=== PATIENT | female | born 1995 ===

== ENCOUNTER 2018-08-01 11:21 | Emergency (ER) | payer MEDICAID, OTHER ==
--- NOTE | 2018-08-01 11:37 | Emergency Department Report ---
Chief Complaint: Vaginal Bleeding Stated Complaint: /SPOTTING Time Seen by Provider: 08/01/18 11:36 - HPI History of Present Illness: 06/19 LMP G2 NO OB YET VAG BLEED POS PREG TEST NAD MSE screening note: Focused history and physical exam performed. Due to findings the following was ordered: ED Disposition for MSE Condition: Stable
[2018-08-01 11:38] VITALS: BP 113/64
[2018-08-01 12:26] LABS: Basophils % (Auto) 0.4 % (0.0-1.8); Eosinophils # (Auto) 0.2 K/mm3 (0.0-0.4); Eosinophils % (Auto) 2.2 % (0.0-4.3); Hematocrit 41.2 % (30.3-42.9); Hemoglobin 13.5 gm/dl (10.1-14.3); Lymphocytes # (Auto) 2.2 K/mm3 (1.2-5.4); Lymphocytes % (Auto) 24.8 % (13.4-35.0); Mean Corpuscular HGB Conc 33 % (30-34); Mean Corpuscular Volume 87 fl (79-97); Monocytes # (Auto) 0.7 K/mm3 (0.0-0.8); Monocytes % (Auto) 7.8 % (0.0-7.3); Platelet Count 318 K/mm3 (140-440); Red Blood Count 4.73 M/mm3 (3.65-5.03); Red Cell Distribution Width 13.3 % (13.2-15.2)
--- NOTE | 2018-08-01 14:14 | Ultrasound Report ---
Contrast no sonography: History: Vaginal bleeding. Findings: Uterus measures 10.4 x 4.8 x 5 cm. Endometrial thickness 17.9 mm. No intrauterine gestation. Right ovary 3.1 x 1.7 x 3.2 cm. No mass. Left ovary 4.4 x 2.1 x 2.5 cm. Cysts in the left ovary measures 2 cm. Impression: Thick endometrium. No intrauterine gestation. Left ovarian cyst.
[2018-08-01 14:59] LABS: Bilirubin,Urine NEG (Negative); Blood,Urine MOD (Negative); Color,Urine Straw (Yellow); Mucus,Urine FEW /HPF; Protein,Urine <15 mg/dL mg/dL (Negative); Urobilinogen,Urine < 2.0 mg/dL (<2.0)
--- NOTE | 2018-08-01 15:12 | Emergency Department Report ---
HPI - General Chief Complaint: Vaginal Bleeding Time Seen by Provider: 08/01/18 11:36 - HPI HPI: She is a 23-year-old who presents to ED complaining of vaginal spotting that began yesterday. Patient states that when she began spotting is stationed a test that was positive at home. Patient presents here today because she continue spotting started getting some mild low pelvic cramping. She denies nausea/vomiting/abdominal pain/fever/chest and shortness of breath. ED Past Medical Hx - Past Medical History Previous Medical History?: No - Surgical History Past Surgical History?: No - Social History Smoking Status: Never Smoker Substance Use Type: None ED Review of Systems ROS: Stated complaint: /SPOTTING Other details as noted in HPI Comment: All other systems reviewed and negative Constitutional: denies: chills, fever Eyes: denies: eye pain, eye discharge, vision change ENT: denies: ear pain, throat pain Respiratory: denies: cough, shortness of breath, wheezing Cardiovascular: denies: chest pain, palpitations Endocrine: no symptoms reported Gastrointestinal: denies: abdominal pain, nausea, diarrhea Genitourinary: denies: urgency, dysuria, discharge Musculoskeletal: denies: back pain, joint swelling, arthralgia Skin: denies: rash, lesions Neurological: denies: headache, weakness, paresthesias Psychiatric: denies: anxiety, depression Hematological/Lymphatic: denies: easy bleeding, easy bruising Physical Exam - Physical Exam Vital Signs: Vital Signs 08/01/18 11:35 Temperature 97.9 F Pulse Rate 73 Respiratory 16 Rate Blood Pressure 113/64 [Right] O2 Sat by Pulse 98 Oximetry Physical Exam: GENERAL: Alert and oriented x3, no apparent distress, Normal Gait, atraumatic. HEAD: Head is normocephalic and a-traumatic. LUNGS: Symetrical with respiration, No wheezing, no rales or crackles, CTAB. HEART: S1, S2 present, regular rate and rhythm without murmur, no rubs, no gallops. Non tender to palpation ABDOMEN: No organomegaly was noted,Positive bowel sounds, soft, and non- distended. . Nontender to palpation on all Quadrants, NO CVA tenderness. BACK: Full range of motion, no spinal tenderness, nontender to palpation. . SKIN: Warm and dry, No lesions, No ulceration or induration present. ED Course Vital Signs 08/01/18 11:35 Temperature 97.9 F Pulse Rate 73 Respiratory 16 Rate Blood Pressure 113/64 [Right] O2 Sat by Pulse 98 Oximetry ED Medical Decision Making - Lab Data Result diagrams: 08/01/18 12:03 - Radiology Data Radiology results: report reviewed, image reviewed Findings: Uterus measures 10.4 x 4.8 x 5 cm. Endometrial thickness 17.9 mm. No intrauterine gestation. Right ovary 3.1 x 1.7 x 3.2 cm. No mass. Left ovary 4.4 x 2.1 x 2.5 cm. Cysts in the left ovary measures 2 cm. Impression: Thick endometrium. No intrauterine gestation. Left ovarian cyst. Transcribed By: PTP Dictated By: ISAURO ZARAGOZA MD Electronically Authenticated By: ISAURO ZARAGOZA MD Signed Date/Time: 08/01/18 5479 - Medical Decision Making 23-year-old female presents with pelvic pain. Urinalysis negative Labs negative, quantitative 823. Pelvic ultrasound obtained. Ultrasound shows no intrauterine Discussed this findings with the patient. Discussed the patient will need close follow-up to return to follow up with [facility] in 2 days for repeat quantitative. Ectopic precautions given to patient. Discussed the patient exercised when seen any worsening pain left-sided in general to return to ED immediately. Medicines are normal and she is in no acute distress. Critical care attestation.: If time is entered above; I have spent that time in minutes in the direct care of this critically ill patient, excluding procedure time. ED Disposition Clinical Impression: test positive, Ovarian cyst Disposition: TO HOME OR SELFCARE Is pt being admited?: No Does the pt Need Aspirin: No Condition: Stable Instructions: Ectopic (ED), Ovarian Cyst (ED) Additional Instructions: Make sure to follow up with the primary care physician as discussed. Take all your medications as you've been prescribed. If you have any worsening symptoms or develop new symptoms please return to ED immediately. Referrals: TIMOTEO FLORENCE MD [Primary Care Provider] - 3-5 Days [facility] [Provider Group] - 3-5 Days [facility] [Provider Group] - 3-5 Days [facility] [Provider Group] - 3-5 Days Forms: Accompanied Note, Work/School Release Form(ED) Time of Disposition: 15:20
== END 2018-08-01 15:51 | disposition home or self-care (01) ==
LOC: ED 11:21
DX: O34.81 Maternal care for other abnormalities of pelvic organs, first trimester (principal); N83.202 Unspecified ovarian cyst, left side; Z3A.01 Less than 8 weeks gestation of pregnancy
CPT/HCPCS: 36415; 76801; 76817; 81001; 84702; 85025; 86900; 86901

== ENCOUNTER 2019-01-17 10:28 | Outpatient (CLI) | payer MEDICAID ==
[2019-01-17] MEDS ORDERED: oxyCODONE /ACETAMINOPHEN 5-325MG TAB PO PRN (13:26)
[2019-01-17 15:39] VITALS: BP 98/57
== END 2019-01-17 15:46 | disposition home or self-care (01) ==
LOC: TRG 10:28
PROVIDERS: ATTEND Obstetrics & Gynecology
DX: O47.03 False labor before 37 completed weeks of gestation, third trimester (principal); Z3A.29 29 weeks gestation of pregnancy
CPT/HCPCS: 59025

== ENCOUNTER 2019-03-10 15:08 | Outpatient (CLI) | payer MEDICAID ==
[2019-03-10 17:31] LABS: Bilirubin,Urine NEG (Negative); Blood,Urine NEG (Negative); Color,Urine Yellow (Yellow); Mucus,Urine FEW /HPF; Protein,Urine <15 mg/dL mg/dL (Negative); Urobilinogen,Urine < 2.0 mg/dL (<2.0)
--- NOTE | 2019-03-10 20:17 | Ultrasound Report ---
ULTRASOUND OBSTETRIC LIMITED ULTRASOUND BIOPHYSICAL PROFILE INDICATION / CLINICAL INFORMATION: BPP. Abdominal pain Clinical Gestational Age (GA): 36 weeks.days COMPARISON: None available. FINDINGS: BREATHING MOVEMENT = 2 GROSS BODY MOVEMENT = 2 TONE = 2 QUALITATIVE AMNIOTIC FLUID VOLUME = 2 TOTAL BIOPHYSICAL SCORE = 8/8 HEART RATE (beats per minute): 151 bpm AMNIOTIC FLUID INDEX (cm) = 8.9 (normal = 7-24 cm) PRESENTATION: Cephalic. ADDITIONAL FINDINGS: Placenta is located posteriorly with grade 2. No evidence of abruption. IMPRESSION: 1. Biophysical Score = 8/8 2. Single viable IUP in a cephalic presentation. Signer Name: Zoraida Dockery MD Signed: 03/10/2019 8:12 PM Workstation Name: [id number]
[2019-03-10 21:18] VITALS: BP 117/63
--- NOTE | 2019-03-12 06:58 | Progress Note ---
Assessment and Plan A: at 36 3/7 weeks gestation. Probable round ligament pain. Not in active labor. Category 1 heart rate tracing, BPP 8/8. P: Discussed US results and urine results with patient. Discussed possible etiologies for her symptoms, comfort measures for round ligament pain and aches and pains of late . Advised patient re: signs and symptoms of labor and warning signs of late . Advised patient to perform daily movement counting and technique discussed with pt. Follow up at [facility] this week. Subjective - Subjective Date of service: 03/10/19 Principal diagnosis: at 36 3/7 weeks; abd. pain and lower back pain Interval history: Triage note for 03/10/19 (late entry): 24 year old presented to L&D triage with complaint of lower back pain and intermittent abdominal pain for the past week. [place] patient; no records available. EDC 04/04/19 per patient self report. Patient states she gets regular care and has not had complications during this . Patient denies vaginal bleeding or leaking of fluid. Patient denies regular contractions. Patient reports active movement. Patient denies falls or abdominal trauma. Patient denies urinary or bowel symptoms; she denies vaginal discharge. She denies N/V, F/C, or malaise. She denies flank pain. Normal appetite. Patient reports: movement normal, no loss of fluid, no vaginal bleeding, no contractions Objective - Exam Narrative Exam: US: BPP 8/8; SHIRA 8.9 cm. Grade 2 placenta; no evidence of abruption. UA negative. Abdomen: Present: normal appearance, soft. Absent: distention, tenderness, guarding, rigidity Uterus: Present: normal, fundal height above umbilicus. Absent: tenderness FHR: category 1 Uterine Contraction Monitor Mode: External Uterine Contraction Pattern: Absent Extremities: normal
== END 2019-03-10 21:30 | disposition home or self-care (01) ==
LOC: TRG 15:08
PROVIDERS: ATTEND Obstetrics & Gynecology
DX: O47.03 False labor before 37 completed weeks of gestation, third trimester (principal); Z3A.36 36 weeks gestation of pregnancy
CPT/HCPCS: 76815; 76819; 81001

== ENCOUNTER 2019-03-22 04:33 | Inpatient (IN) | payer MEDICAID ==
[2019-03-22 06:05] LABS: Hemoglobin 11.3 gm/dl (10.1-14.3); Mean Corpuscular HGB Conc 33 % (30-34); Mean Corpuscular Volume 77 fl (79-97); Platelet Count 312 K/mm3 (140-440); Red Cell Distribution Width 13.8 % (13.2-15.2)
[2019-03-22] MEDS ORDERED: LACTATED RINGERS 2,000 ML ONE (06:05)
[2019-03-22 06:17] LABS: Bacteria,Urine 2+ /HPF (Negative); Bilirubin,Urine NEG (Negative); Blood,Urine MOD (Negative); Color,Urine Yellow (Yellow); Mucus,Urine 2+ /HPF; Urobilinogen,Urine < 2.0 mg/dL (<2.0)
[2019-03-22] MEDS ORDERED: LACTATED RINGERS 1,000 ML ONE (08:54)
--- NOTE | 2019-03-22 10:50 | History and Physical Report ---
History of Present Illness Date of examination: 03/22/19 Date of admission: 03/22/19 04:34 Chief complaint: SROM clear fluid @ 0252 History of present illness: Pt is a 24yo HF EDC 04/04/18; EGA 38 04/03 weeks presents to L&D complaining of SROM clear fluid @ 0252 followed by irregular contractions. She received care at [facility] since 7 weeks and course has been unremarkable. records are available but GBS is unknown. Past History Past Medical History: no pertinent history Past Surgical History: no surgical history Family/Genetic History: heart disease Social history: no significant social history, single - Obstetrical History Expected Date of Delivery: 04/04/19 Actual Gestation: 38 Week(s) 1 Day(s) : 2 Medications and Allergies Allergies Allergy/AdvReac Type Severity Reaction Status Date / Time No Known Allergies Allergy Verified 03/22/19 04:55 Home Medications Medication Instructions Recorded Confirmed Last Taken Type 21/Iron Fu/Folic Acid 1 each PO DAILY #30 tablet 08/03/18 Unknown Rx [ Complete Caplet] Review of Systems All systems: negative - Vital Signs Vital signs: Vital Signs Temp Pulse Resp BP Pulse Ox 98.7 F 85 16 129/79 97 03/22/19 04:53 03/22/19 04:53 03/22/19 04:53 03/22/19 04:53 03/22/19 04:53 Temp Pulse Resp BP Pulse Ox 98.3 F 85 16 129/79 97 03/22/19 05:59 03/22/19 04:53 03/22/19 05:59 03/22/19 04:53 03/22/19 04:53 - Physical Exam Abdomen: Positive: normal appearance, soft Genitourinary (Female): Positive: normal external genitalia Uterus: Positive: enlarged Extremities: Positive: normal - Obstetrical FHR: category 1 Uterine Contraction Monitor Mode: External Cervical Dilatation: 0.5 (per nurse) Cervical Effacement Percentage: 0 (per nurse) station: -4 Uterine Contraction Pattern: Irregular Uterine Tone Measurement Phase: Contraction Uterine Contraction Intensity: Mild Results Result Diagrams: 03/22/19 05:20 Abnormal lab results 03/22/19 03/22/19 Range/Units 04:30 05:20 MCV 77 L (79-97) fl MCH 26 L (28-32) pg U Epithel Cells (Auto) 51.0 H (0-13.0) /HPF All other labs normal. Assessment and Plan - Patient Problems (1) 38 weeks gestation of Onset Date: 03/22/19 Current Visit: Yes Status: Acute Plan to address problem: A: IUP @ 38 1/7 weeks in labor Unknown GBS P: Admit to L&D for expectant vaginal delivery IV Ampicillin Begin IV pitocin
[2019-03-22] MEDS ORDERED: ePHEDrine SULFATE 50 MG/1 ML INJ IV PRN (11:30)
[2019-03-22] MEDS ORDERED: ONDANSETRON 4 MG/2 ML INJ IV PRN (11:30)
[2019-03-22] MEDS ORDERED: BUTORPHANOL 2 MG/1 ML INJ IV PRN (11:30)
[2019-03-22] MEDS ORDERED: fentaNYL 100 MCG/2 ML INJ IV PRN (11:30)
[2019-03-22] MEDS ORDERED: TERBUTALINE 1 MG/1 ML INJ SUB-Q PRN (12:00)
[2019-03-22] MEDS ORDERED: LIDOCAINE (2%) 20 MG/1 ML VIAL 20 ML MDV INFILTRATI NR (12:00)
[2019-03-22] MEDS ORDERED: TERBUTALINE 1 MG/1 ML INJ IVP PRN (12:00)
[2019-03-22] MEDS ORDERED: OXYTOCIN 20 UNIT/1000ML DRIP 20 UNITS/1,000 ML BAG IV SCH (12:00)
[2019-03-22] MEDS ORDERED: OXYTOCIN DRIP 30 UNITS/500 ML BAG IV SCH (12:00)
[2019-03-22] MEDS ORDERED: AMPICILLIN/NS 2 GM/100 ML 2 GM/100 ML BAG IV ONE (12:00)
[2019-03-22] MEDS: OXYTOCIN DRIP 30 UNITS/500 ML BAG IV SCH ×2 (14:36→15:04)
[2019-03-22] MEDS: AMPICILLIN/NS 1 GM/50 ML 1 GM/50 ML BAG IV SCH ×2 (16:51→21:05)
[2019-03-22] MEDS: LACTATED RINGERS 1,000 ML IV SCH (21:05)
[2019-03-22] MEDS ORDERED: DEXMEDETOMIDINE 200 MCG/2 ML VIAL IV ONE (23:54)
[2019-03-23] MEDS ORDERED: NALOXONE 2 MG/2 ML INJ IV PRN (00:16)
--- NOTE | 2019-03-23 00:16 | Anesthesia Consultation ---
Anesthesia Consult and Med Hx Date of service: 03/23/19 - Airway Anesthetic Teeth Evaluation: Good ROM Head & Neck: Adequate Mental/Hyoid Distance: Adequate Mallampati Class: Class II Intubation Access Assessment: Good - Pulmonary Exam CTA: Yes - Cardiac Exam Cardiac Exam: RRR - Pre-Operative Health Status ASA Pre-Surgery Classification: ASA2, Emergency Proposed Anesthetic Plan: Epidural, Spinal - Pulmonary Hx Asthma: No COPD: No Hx Pneumonia: No - Cardiovascular System Hx Hypertension: No - Central Nervous System Hx Seizures: No Hx Psychiatric Problems: No - Endocrine Hx Renal Disease: No Hx End Stage Renal Disease: No Hx Hypothyroidism: No Hx Hyperthyroidism: No - Hematic Hx Anemia: No Hx Sickle Cell Disease: No - Other Systems Hx Alcohol Use: No
[2019-03-23] MEDS: ePHEDrine SULFATE 50 MG/1 ML INJ IV PRN ×2 (00:27→00:34)
[2019-03-23] MEDS ORDERED: fentaNYL-BUPIV 2 MCG/ML-0.125% 200 MCG/100 ML BAG EPIDURAL SCH (01:00)
[2019-03-23] MEDS: AMPICILLIN/NS 1 GM/50 ML 1 GM/50 ML BAG IV SCH ×4 (01:05→12:00)
[2019-03-23] MEDS: LACTATED RINGERS 1,000 ML IV SCH (04:58)
[2019-03-23] MEDS: MINERAL OIL 30 ML ORAL LIQD PO PRN ×5 (09:53→11:29)
[2019-03-23] MEDS ORDERED: METHYLERGONOVINE MALEATE 0.2 MG/ML VIAL IM ONE ×2 (11:54→18:32)
--- NOTE | 2019-03-23 11:54 | Procedure Note ---
OB Delivery Note - Delivery Date of Delivery: 03/23/19 Surgeon: ROMEO LOREDO Estimated blood loss: 200cc - Vaginal Delivery presentation: vertex Delivery position: OA Intrapartum events: PROM->1hr before delivery, prolonged labor- > = 20hr Delivery induction: oxytocin Delivery augmentation: pitocin Delivery monitor: external FHT, external uterine Route of delivery: Delivery placenta: spontaneous Delivery cord: 3 umbilical vessels Episiotomy: none Delivery laceration: none Anesthesia: epidural Delivery comments: Infant delivered OA and placed on Mom's chest for [id number] bonding and delayed cord clamping, cut by Dad - A at 1 minute: 8 at 5 minutes: 9 Infant Gender: Female (2765gms)
[2019-03-23] MEDS ORDERED: PROMETHAZINE 25 MG RECT SUPP PR PRN (18:37)
[2019-03-23] MEDS ORDERED: ACETAMINOPHEN 325 MG TAB PO PRN (18:37)
[2019-03-23] MEDS ORDERED: PROMETHAZINE 25 MG TAB PO PRN (18:37)
[2019-03-23] MEDS ORDERED: MAGNESIUM HYDROXIDE (MOM) ORAL LIQD UDC PO PRN (18:37)
[2019-03-23] MEDS ORDERED: WITCH HAZEL/ GLYCERIN PAD TP PRN (18:37)
[2019-03-23] MEDS ORDERED: ONDANSETRON 4 MG/2 ML INJ IV PRN (18:37)
[2019-03-23] MEDS ORDERED: diphenhydrAMINE 25 MG CAP PO PRN (18:37)
[2019-03-23] MEDS ORDERED: HYDROcodone/ACETAMINOPHEN 5-325 MG TAB PO PRN (18:37)
[2019-03-23] MEDS ORDERED: BENZOCAINE/MENTHOL 20/0.5% TOP SPRAY 56 GM TP PRN (18:37)
[2019-03-23] MEDS ORDERED: LANOLIN/ZINC/DIMETHICONE (LANSINOH) 7 GM TP PRN (18:37)
[2019-03-23] MEDS ORDERED: OXYTOCIN 20 UNIT/1000ML DRIP 20 UNITS/1,000 ML BAG IV SCH (19:00)
[2019-03-23] MEDS: IBUPROFEN 600 MG TAB PO SCH (23:56)
[2019-03-23] MEDS: DOCUSATE SODIUM 100 MG CAP PO SCH (23:56)
[2019-03-23] MEDS: FERROUS SULFATE 325 MG TAB PO SCH (23:57)
[2019-03-24] MEDS: IBUPROFEN 600 MG TAB PO SCH ×3 (05:05→22:08)
[2019-03-24] MEDS ORDERED: TETANUS,DIPH,PERTUSS(ACELL) VACCINE 0.5 ML SYRINGE IM ONE (06:00)
[2019-03-24] MEDS ORDERED: MEASLES, MUMPS & RUBELLA 12,500 UNIT/0.5 ML VACCINE SUB-Q ONE (06:00)
[2019-03-24 08:18] LABS: Hematocrit 31.7 % (30.3-42.9); Hemoglobin 10.2 gm/dl (10.1-14.3)
[2019-03-24] MEDS: DOCUSATE SODIUM 100 MG CAP PO SCH ×2 (10:17→22:07)
[2019-03-24] MEDS: FERROUS SULFATE 325 MG TAB PO SCH ×2 (10:17→22:07)
[2019-03-24] MEDS: PRENATAL VIT27-FE FUMARATE-FOLIC ACID VIT TAB PO SCH (10:17)
--- NOTE | 2019-03-24 10:23 | Progress Note ---
Assessment and Plan - Patient Problems (1) 38 weeks gestation of Onset Date: 03/22/19 Current Visit: Yes Status: Resolved (2) (normal spontaneous vaginal delivery) Onset Date: 03/24/19 Current Visit: Yes Status: Resolved Plan to address problem: A: S/P - PPD #1 Doing well Asymptomatic anemia - stable P: May go home tomorrow. Subjective - Subjective Date of service: 03/24/19 Principal diagnosis: s/p - PPD #1 Interval history: Pt is feeling well without complaints. Bleeding improved. Patient reports: appetite normal, voiding normally, pain well controlled, flatus, ambulating normally, no dizzy ambulation, no nauseated [place]: doing well, nursing well, bottle feeding Objective - Vital Signs Latest vital signs: Vital Signs Temp Pulse Resp BP BP Pulse Ox 03/24/19 08:14 98.3 F 88 18 108/60 97 03/24/19 06:05 18 03/24/19 05:05 18 03/24/19 00:00 98.2 F 75 18 128/68 03/23/19 23:56 18 03/23/19 20:29 98.0 F 90 20 124/78 97 03/23/19 16:19 98.0 F 86 18 115/67 03/23/19 16:00 18 03/23/19 14:15 97.8 F 82 18 117/73 98 03/23/19 13:45 97.8 F 03/23/19 13:17 90 111/62 97 03/23/19 12:55 93 H 110/67 03/23/19 12:17 99 H 120/62 03/23/19 12:08 108 H 97 03/23/19 12:03 115 H 98 03/23/19 11:58 104 H 98 03/23/19 11:55 105 H 96/54 03/23/19 11:53 107 H 98 03/23/19 11:51 101 H 113/57 03/23/19 11:48 105 H 97 03/23/19 11:45 97.6 F 18 03/23/19 11:43 113 H 98 03/23/19 11:38 135 H 97 03/23/19 11:33 161 H 98 03/23/19 11:30 18 03/23/19 11:28 151 H 98 03/23/19 11:26 104 H 116/61 03/23/19 11:23 120 H 99 03/23/19 11:18 134 H 99 03/23/19 11:13 95 H 96 03/23/19 11:10 97 H 113/69 03/23/19 11:08 107 H 98 03/23/19 11:06 109 H 94 03/23/19 11:03 105 H 97 03/23/19 11:00 101 H 93 03/23/19 10:58 113 H 98 03/23/19 10:56 87 122/73 03/23/19 10:53 124 H 97 03/23/19 10:48 89 97 03/23/19 10:43 102 H 96 03/23/19 10:40 102 H 103/64 03/23/19 10:38 87 96 03/23/19 10:33 99 H 97 03/23/19 10:32 86 94 03/23/19 10:30 97.6 F 03/23/19 10:28 95 H 98 03/23/19 10:26 93 H 103/57 Intake and Output 03/23/19 03/24/19 03/24/19 22:59 06:59 14:59 Intake Total 960 360 120 Output Total 1950 450 Balance -990 -90 120 Intake: Oral 480 Intake, Free Water 480 360 120 Output: Urine 1950 450 Void 1950 450 Other: Total, Intake Amount 480 Total, Output Amount 450 450 # Voids Void 1 1 1 - Exam Breasts: Present: deferred Abdomen: Present: normal appearance, soft Uterus: Present: normal, firm, fundal height below umbilicus Extremities: Present: normal - Labs Labs: Laboratory Tests 03/22/19 03/22/19 03/22/19 04:30 05:20 05:20 WBC 8.2 RBC 4.40 Hgb 11.3 Hct 34.0 MCV 77 L MCH 26 L MCHC 33 RDW 13.8 Plt Count 312 Urine Color Yellow Urine Turbidity Cloudy Urine pH 6.0 Ur Specific [place] 1.009 Urine Protein 30 mg/dl Urine Glucose (UA) Neg Urine Ketones Neg Urine Blood Mod Urine Nitrite Neg Urine Bilirubin Neg Urine Urobilinogen < 2.0 Ur Leukocyte Esterase Neg Urine WBC (Auto) 3.0 Urine RBC (Auto) 56.0 U Epithel Cells (Auto) 51.0 H Urine Bacteria (Auto) 2+ Urine Mucus 2+ Blood Type A POSITIVE Antibody Screen Negative 03/24/19 07:40 WBC RBC Hgb 10.2 Hct 31.7 MCV MCH MCHC RDW Plt Count Urine Color Urine Turbidity Urine pH Ur Specific [place] Urine Protein Urine Glucose (UA) Urine Ketones Urine Blood Urine Nitrite Urine Bilirubin Urine Urobilinogen Ur Leukocyte Esterase Urine WBC (Auto) Urine RBC (Auto) U Epithel Cells (Auto) Urine Bacteria (Auto) Urine Mucus Blood Type Antibody Screen
--- NOTE | 2019-03-24 10:44 | Discharge Summary ---
Providers - Providers Date of Admission: 03/22/19 04:34 Date of discharge: 03/25/19 Attending physician: ROMEO LOREDO Primary care physician: ROMEO LOREDO Hospitalization Reason for admission: induction of labor, rupture of membranes, IUP at term Delivery: Episiotomy: none Laceration: none Other procedures: none complications: none Discharge diagnosis: IUP at term delivered baby: female Hospital course: Unremarkable. Condition at discharge: Good Disposition: DC-01 TO HOME OR SELFCARE - Discharge Diagnoses (1) 38 weeks gestation of Status: Resolved (2) (normal spontaneous vaginal delivery) Status: Resolved Plan - Discharge Medications Prescriptions: Ferrous Sulfate [Feosol 325 MG tab] 325 mg PO BID #60 tablet Ibuprofen [Motrin 600 MG tab] 600 mg PO Q6H #30 tablet Vit-Fe Fumar-FA [ Vitamin] 1 each PO QDAY #30 tablet - Provider Discharge Summary Activity: routine, no sex for 6 weeks, no heavy lifting 4 weeks, no strenuous exercise Diet: routine Instructions: routine Additional instructions: [] Smoking cessation referral if applicable(refer to patient education folder for contact #) [] Refer to [facility]'s [facility] Booklet Call your doctor immediately for: * Fever > 100.5 * Heavy vaginal bleeding ( >1 pad per hour) * Severe persistent headache * Shortness of breath * Reddened, hot, painful area to leg or breast * Drainage or odor from incision. * Keep incision clean and dry at all times and follow doctor's instructions regarding bathing/showering - Follow up plan Follow up: ROMEO LOREDO MD [Primary Care Provider] - 6 Weeks
[2019-03-24] MEDS ORDERED: FLU VACC QUAD 2019-20 (3 YR UP)/PF 60 MCG/0.5 ML SYRINGE IM ONE (12:00)
[2019-03-25] MEDS: IBUPROFEN 600 MG TAB PO SCH ×4 (01:00→12:45)
[2019-03-25] MEDS: PRENATAL VIT27-FE FUMARATE-FOLIC ACID VIT TAB PO SCH (11:09)
[2019-03-25] MEDS: FERROUS SULFATE 325 MG TAB PO SCH (11:09)
[2019-03-25] MEDS: DOCUSATE SODIUM 100 MG CAP PO SCH (11:09)
[2019-03-25 17:50] VITALS: BP 117/72
== END 2019-03-25 16:00 | disposition home or self-care (01) | DRG 775 ==
LOC: TRG 04:33 → LD 04:34 → TRG 04:40 → OB 03-23 17:23
PROVIDERS: ADMIT Obstetrics & Gynecology; ATTEND Obstetrics & Gynecology
PROC: 10907ZC Drainage of Amniotic Fluid, Therapeutic from Products of Conception, Via Natural or Artificial Opening (ICD-10-PCS; 2019-03-22)
PROC: 3E033VJ Introduction of Other Hormone into Peripheral Vein, Percutaneous Approach (ICD-10-PCS; 2019-03-22)
PROC: 10E0XZZ Delivery of Products of Conception, External Approach (ICD-10-PCS; principal; 2019-03-23)
PROC: 3E0R3BZ Introduction of Anesthetic Agent into Spinal Canal, Percutaneous Approach (ICD-10-PCS; 2019-03-23)
PROC: 00HU33Z Insertion of Infusion Device into Spinal Canal, Percutaneous Approach (ICD-10-PCS; 2019-03-23)
PROC: 3E0234Z Introduction of Serum, Toxoid and Vaccine into Muscle, Percutaneous Approach (ICD-10-PCS; 2019-03-24)
PROC: 3E0134Z Introduction of Serum, Toxoid and Vaccine into Subcutaneous Tissue, Percutaneous Approach (ICD-10-PCS; 2019-03-24)
DX: O42.92 Full-term premature rupture of membranes, unspecified as to length of time between rupture and onset of labor (principal); Z3A.38 38 weeks gestation of pregnancy; Z37.0 Single live birth; O63.9 Long labor, unspecified; O90.81 Anemia of the puerperium; Z23 Encounter for immunization
CPT/HCPCS: 36415; 81001; 85014; 85018; 85027; 86850; 86900; 86901; 90471; 90686; 90715; G0378; J0290; J0595; J2210; J2405; J2590; J3010; J3490; J7120